=== PATIENT | male | born 2000 | race Asian ===

== ENCOUNTER 2022-09-30 11:35 | Emergency (ER) | payer OTHER, SELFPAY ==
[2022-09-30 11:39] VITALS: BP 116/69; PULSE 86; RESP 18; TEMP 36.4; O2SAT 98; BMI 20.8
--- NOTE | 2022-09-30 12:44 | ED.GENADULT ---
HPI - General Adult General Chief complaint: Shoulder Injury/Pain Stated complaint: LT shoulder and neck stiff and painful Time Seen by Provider: 09/30/22 11:52 History of Present Illness HPI narrative: This 21-year-old male comes in reporting left shoulder pain and left lateral neck pain. He states that he woke up with this this morning. There was no injury event or strenuous activity recently. He states that he does not have a prior history of neck pain or shoulder pain. He states that the pain seems to radiate down into his scapular region and into the upper portion of his left arm. He has full range of motion of his left arm but there is pain when doing so. Related Data Previous Rx's Medication Instructions Recorded cyclobenzaprine 10 mg tablet 10 mg PO TID #15 tabs 09/30/22 ketorolac 10 mg tablet 10 mg PO Q8H 5 days #15 tabs 09/30/22 methylprednisolone 4 mg tablets in See Rx Instructions PO .COMPLEX 09/30/22 a dose pack (Medrol (Tereso)) #21 ea Allergies Allergy/AdvReac Type Severity Reaction Status Date / Time No Known Drug Allergies Allergy Verified 09/30/22 11:39 Review of Systems Status of ROS: Reports: 10 or more systems reviewed and unremarkable except as noted in History and below Narrative: Constitutional: No fevers, no weight gain or loss. Eyes: No discharge. No vision changes. HENT: No congestion, no sore throat, no ear pain. Cardiovascular: No chest pain, no palpitations. Respiratory: No shortness of breath, no wheezes, no cough. Gastrointestinal: No abdominal pain, no vomiting, no diarrhea. Genitourinary: No dysuria, no hematuria. Musculoskeletal: Normal range of motion. Left shoulder and upper arm pain as described above. Skin: No rashes, no pruritis. Neurological: No dizziness, weakness, sensory change, speech change. Endo/Heme/Allergies: No bruising or bleeding. No polydipsia. Pysch: no suicidality, no anxiety, no insomnia. All other systems reviewed and are negative. PFSH PFS Social History Smoking Status: Current some day smoker What tobacco products do you use: cigarettes Do you use any of these nicotine containing products: Vaping Products Second hand tobacco smoke exposure: No How often do you have a drink containing alcohol: 2-4 times a month How many standard drinks containing alcohol do you have on a typical day: 1 or 2 How often do you have six or more drinks on one occasion: Less than monthly AUDIT-C Alcohol total score: 3 Non-prescribed substance use: denies use service: No Exam Narrative: Exam Narrative: Constitutional: Well-developed, well-nourished, no acute distress. HEENT: Normocephalic, atraumatic. Neck: Normal range of motion. Nontender. Supple. Heart: Regular. No murmurs. Normal rate. Intact distal pulses. Lungs: Clear to auscultation. No chest discomfort. No wheezes, rhonchi, or rales. Abdomen: Normal bowel sounds. Nontender. No rebound tenderness. Genitalia: Deferred. Back: No midline tenderness. Normal range of motion. Extremities: Normal range of motion. No injury. Skin: Intact. No rash. Warm. No erythema or pallor. Neurologic: No altered sensation. No weakness. Alert and oriented. Spurling's test is somewhat positive eliciting pain in the left posterior shoulder and part way down the left upper arm. Psychiatric: No suicidality. No anxiety or depression. No insomnia. Nursing notes and vitals signs are reviewed. Const: Vital Signs, click to edit/add: Vital Signs - 24 hr 09/30/22 11:39 Temperature 97.5 F L Pulse Rate [Pulse Oximeter] 86 Respiratory Rate 18 Blood Pressure [Le ft Upper Arm] 116/69 Pulse Oximetry 98 Oxygen Delivery Me thod Room Air Course Vital Signs Vital signs: Initial Vital Signs Temperature 97.5 F L 09/30/22 11:39 Temperature Source Temporal Artery Scan 09/30/22 11:39 Pulse Rate 86 09/30/22 11:39 Respiratory Rate 18 09/30/22 11:39 Blood Pressure 116/69 09/30/22 11:39 Blood Pressure Mean 84 09/30/22 11:39 Blood Pressure Position Supine 09/30/22 11:39 Pulse Oximetry 98 09/30/22 11:39 Oxygen Delivery Method 09/30/22 11:39 Vital Signs Temperature 97.5 F L 09/30/22 11:39 Pulse Rate 86 09/30/22 11:39 Respiratory Rate 18 09/30/22 11:39 Blood Pressure 116/69 09/30/22 11:39 Pulse Oximetry 98 09/30/22 11:39 Oxygen Delivery Method 09/30/22 11:39 Temperature 97.5 F L 09/30/22 11:39 Pulse Rate 86 09/30/22 11:39 Respiratory Rate 18 09/30/22 11:39 Blood Pressure 116/69 09/30/22 11:39 Pulse Oximetry 98 09/30/22 11:39 Oxygen Delivery Method 09/30/22 11:39 Medical Decision Making MDM Narrative Medical decision making narrative: This patient comes in with shoulder pain and left lateral neck pain. There was no particular injury event. He is a student at [employer] and certainly is spending a fair amount a time studying with possible posture issues that contribute to this discomfort. I did discuss the role of imaging studies but indicated that these will not likely be helpful when there was no significant mechanism of injury. The patient did receive prescriptions for Toradol, Flexeril, and Medrol Dosepak. I describe signs and symptoms that would indicate need for follow-up. Hopefully the medications will bring about improvement. I encouraged gentle stretching and strengthening exercises also. Discharge Plan Discharge Clinical Impression: Acute shoulder pain Patient Disposition: Home, Self-Care Condition: Unchanged Additional Instructions: Take medications as needed and indicated. Increase activity as tolerated. Follow up with MD or return if worsening. Prescriptions: New cyclobenzaprine 10 mg tablet 10 mg PO TID Qty: 15 0RF ketorolac 10 mg tablet 10 mg PO Q8H 5 Days Qty: 15 0RF methylprednisolone [Medrol (Tereso)] 4 mg tablets,dose pack See Rx Instructions .ROUTE .COMPLEX Qty: 21 0RF Rx Instructions: orally per package directions Follow Up/Referrals: Provider,Not a Local [Primary Care Provider] - Stand Alone Forms: [employer] Info Instructions
== END 2022-09-30 13:05 | disposition home or self-care (01) ==
PROVIDERS: Emergency Provider Emergency Medicine Emergency Medical Services
DX: M25.512 Pain in left shoulder (principal)
CPT/HCPCS: 99283; 99284

== ENCOUNTER 2023-10-13 15:47 | Outpatient (CLI) | payer OTHER, SELFPAY | END 2023-10-13 15:48 | disposition home or self-care (01) | PROVIDERS: Visit Provider Family Medicine | DX: Z20.2 Contact with and (suspected) exposure to infections with a predominantly sexual mode of transmission (principal); Z11.3 Encounter for screening for infections with a predominantly sexual mode of transmission | CPT/HCPCS: 86592; 86703; 86803; 87340; 87491; 87591 ==